=== PATIENT | male | born 1950 | race Asian ===

== ENCOUNTER 2021-07-09 09:32 | Day surgery (SDC) | payer MEDICARE ==
[2021-07-09] MEDS ORDERED: Albumin 25% 0 ML ONE (11:27)
[2021-07-09] MEDS ORDERED: Lidocaine 1% PF 5 ML VIAL ONE (11:28)
[2021-07-09] MEDS ORDERED: Sodium Bicarbonate 2.5 MEQ/5 ML VIAL ONE (11:28)
[2021-07-09 11:38] LABS: #Neutrophils 9.2 10x3/uL (1.5-8.4); %Basophils 0.3 % (0.0-2.0); %Eosinophils 0.4 % (0.0-6.0); %Lymphocytes 5.9 % (18.0-47.0); %Monocytes 8.7 % (0.0-10.0); %Neutrophils 84.2 % (40.0-75.0); Hemoglobin 9.8 g/dL (13.5-17.5); Mean Corpuscular HGB CONC 33.8 g/dL (32.0-36.0); Mean Corpuscular Hemoglobin 26.6 pg (27.0-33.0); Mean Corpuscular Volume 78.6 fl (81.2-95.1); Mean Platelet Volume 9.4 fl (7.4-10.4); Platelet Count 231 10x3/uL (150-450); RBC Distribution Width 27.1 % (11.5-14.5); Red Blood Cell (RBC) Count 3.69 10x6/uL (4.32-5.72); White Blood Cell (WBC) Count 10.9 10x3/uL (3.5-10.5)
[2021-07-09 11:46] LABS: INR-International Normal Ratio 1.8; PTT 29.7 sec (22.0-33.0); Prothrombin Time 19.1 sec (9.5-12.1)
[2021-07-09 12:46] LABS: Anisocytosis MODERATE=16-30 cells (100X) (0-5/hpf)
[2021-07-09 12:47] LABS: Hypochromia SLIGHT = 6-15 cells (100X) (0-5/hpf); Polychromasia SLIGHT = 2-3 cells (100X) (0-2/hpf); Target Cells SLIGHT = 2-5 cells (100X) (0-1/hpf)
[2021-07-09] MEDS ORDERED: Albumin 25% 100 ML ONE (12:47)
[2021-07-09 12:48] LABS: Schistocytes SLIGHT = 2-5 cells (100X) (0-1/hpf)
[2021-07-09 12:49] LABS: Platelet Morphology Comment Appears Adequate
== END 2021-07-09 13:04 | disposition home or self-care (01) ==
LOC: CSHULT 09:32
PROVIDERS: ATTEND Physician Assistant Medical
DX: C22.0 Liver cell carcinoma (principal); R18.0 Malignant ascites; E87.6 Hypokalemia; I85.00 Esophageal varices without bleeding; B18.1 Chronic viral hepatitis B without delta-agent; B19.0 Unspecified viral hepatitis with hepatic coma
CPT/HCPCS: 49083; 85025; 85610; 85730; P9047